=== PATIENT | male | born 2000 | race African-American/Black ===

== ENCOUNTER 2023-05-25 22:10 | Emergency (ER) | payer OTHER ==
[~2023-05-25] VITALS: Ht 185.4 cm; Wt 90.0 kg
[2023-05-25 22:12] VITALS: BP 130/78; PULSE 84; RESP 18; TEMP 98.4; O2SAT 98
== END 2023-05-26 01:16 ==
LOC: ER 22:28
DX: S80.211A Abrasion, right knee, initial encounter (principal); S69.81XA Other specified injuries of right wrist, hand and finger(s), initial encounter; X58.XXXA Exposure to other specified factors, initial encounter; Y93.89 Activity, other specified; Y92.89 Other specified places as the place of occurrence of the external cause; Y99.8 Other external cause status
CPT/HCPCS: 73090; 73110; 73130; 99284